=== PATIENT | female | born 1985 | race Native Hawaiian/Other Pacific Islander ===

== ENCOUNTER 2018-08-05 19:51 | Emergency (ER) | payer MEDICAID ==
[~2018-08-05] VITALS: Ht 165.1 cm; Wt 96.6 kg
[2018-08-05 20:54] VITALS: BP 116/81
[2018-08-05 21:34] LABS: Basophils # (auto) 0.2 uL; Eosinophils # (auto) 1.1 uL; Eosinophils % (auto) 7.1 % (0.0-7.0); Hemoglobin 14.6 g/dL (12.2-16.2); Lymphocytes # (auto) 3.2 uL; Mean Corpuscular Hemoglobin 29.7 pg (28.0-32.0); Mean Corpuscular Hgb Conc. 33.9 g/dL (32.0-36.0); Mean Corpuscular Volume 87.7 fL (80.0-100.0); Monocytes # (auto) 0.8 uL; Monocytes % (auto) 5.5 % (0.0-12.0); Neutrophils % (auto) 65.4 % (37.0-80.0); Platelet Count (auto) 384 10^3/uL (140-450); Red Cell Distribution Width 14.8 % (11.8-14.3); White Blood Cell 15.3 10^3/uL (4.4-10.8)
[2018-08-05 21:38] LABS: Urine Bacteria NONE SEEN /hpf (None Seen); Urine Blood Negative /uL (Negative); Urine Mucus FEW (None Seen); Urine Specific Gravity 1.022 (1.001-1.035); Urine WBC <1 /hpf (0 - 5)
[2018-08-05 21:51] LABS: Albumin 3.3 g/dL (3.4-5.0); BUN/Creatinine Ratio 16.2; Calcium 8.6 mg/dL (8.5-10.1)
[2018-08-05 21:54] LABS: Bilirubin, Total 0.3 mg/dL (0.2-1.0); Total Protein 7.4 g/dL (6.4-8.2)
== END 2018-08-06 00:40 | disposition left against medical advice (07) ==
LOC: ER 19:51
DX: O46.8X1 Other antepartum hemorrhage, first trimester (principal); Z3A.11 11 weeks gestation of pregnancy; Z53.21 Procedure and treatment not carried out due to patient leaving prior to being seen by health care provider
CPT/HCPCS: 36415; 76801; 80053; 81001; 81025; 84702; 85025

== ENCOUNTER 2019-02-17 17:30 | Observation (INO) | payer MEDICAID ==
[2019-02-17] MEDS ORDERED: PREN-96 PO (18:09)
[2019-02-17] MEDS ORDERED: ACET-1156 PO (18:09)
== END 2019-02-17 20:25 | disposition home or self-care (01) | DRG 566 ==
LOC: LDRP 17:30
PROVIDERS: ADMIT Specialist; ATTEND Specialist
DX: O42.92 Full-term premature rupture of membranes, unspecified as to length of time between rupture and onset of labor (principal); O09.523 Supervision of elderly multigravida, third trimester; O62.9 Abnormality of forces of labor, unspecified; Z3A.38 38 weeks gestation of pregnancy; Z87.891 Personal history of nicotine dependence
CPT/HCPCS: 59025; 81002; G0378